=== PATIENT | female | born 1985 | race Caucasian/White ===

== ENCOUNTER 2018-02-03 09:32 | Outpatient (CLI) | payer OTHER | END 2018-02-03 09:48 | disposition home or self-care (01) | LOC: SONOGRAMA 09:32 | DX: E06.3 Autoimmune thyroiditis (principal); I34.1 Nonrheumatic mitral (valve) prolapse; R00.8 Other abnormalities of heart beat; E78.2 Mixed hyperlipidemia; E55.9 Vitamin D deficiency, unspecified; I80.221 Phlebitis and thrombophlebitis of right popliteal vein; Z86.72 Personal history of thrombophlebitis; J45.998 Other asthma; J31.0 Chronic rhinitis; G47.8 Other sleep disorders; F41.8 Other specified anxiety disorders ==

== ENCOUNTER 2018-02-04 10:24 | Outpatient (CLI) | payer OTHER | END 2018-02-04 11:55 | disposition home or self-care (01) | LOC: NUCLEAR 10:24 | DX: E06.3 Autoimmune thyroiditis (principal); G47.8 Other sleep disorders; F41.8 Other specified anxiety disorders; E55.9 Vitamin D deficiency, unspecified; I34.1 Nonrheumatic mitral (valve) prolapse; R00.0 Tachycardia, unspecified; I49.1 Atrial premature depolarization; E78.2 Mixed hyperlipidemia; I80.221 Phlebitis and thrombophlebitis of right popliteal vein; Z86.72 Personal history of thrombophlebitis; J45.998 Other asthma; J31.0 Chronic rhinitis | CPT/HCPCS: 78070; A9500 ==

== ENCOUNTER 2018-03-06 08:54 | Outpatient (CLI) | payer OTHER | END 2018-03-06 09:06 | disposition home or self-care (01) | LOC: MRI 08:54 | DX: R06.2 Wheezing (principal); E55.9 Vitamin D deficiency, unspecified; I34.1 Nonrheumatic mitral (valve) prolapse; R00.0 Tachycardia, unspecified; I49.1 Atrial premature depolarization; E78.2 Mixed hyperlipidemia; R60.0 Localized edema; Z86.72 Personal history of thrombophlebitis; I87.021 Postthrombotic syndrome with inflammation of right lower extremity; N18.2 Chronic kidney disease, stage 2 (mild); E06.3 Autoimmune thyroiditis; J45.998 Other asthma; J31.0 Chronic rhinitis; G47.10 Hypersomnia, unspecified; G47.8 Other sleep disorders; F41.8 Other specified anxiety disorders; I80.221 Phlebitis and thrombophlebitis of right popliteal vein | CPT/HCPCS: 72148 ==